=== PATIENT | female | born 1965 | race Caucasian/White ===

== ENCOUNTER → 2016-12-03 | Day surgery (SDC) | payer BC ==
[~2016-12-03] MED LIST: BUPIVACAINE 0.25%-EPINEPHRINE 1:200,000 30 ML ONE; CEFAZOLIN 1 GM VIAL ONE; DEXAMETHASONE 4 MG/ML VIAL IV ONE; FENTANYL 100 MCG/2 ML VIAL IV ONE; FENTANYL 100 MCG/2 ML VIAL IV PRN; FENTANYL 100 MCG/2 ML VIAL ONE; HYDROmorphone 1 MG INJECTION IV PRN; HYDROmorphone 1 MG INJECTION ONE; LABETALOL 20 MG/4 ML SYRINGE IV PRN; MEPERIDINE 25 MG/ML TUBEX IV PRN; MIDAZOLAM 2 MG/2 ML VIAL IV ONE; ONDANSETRON HCL 4 MG ODT TAB PO PRN; ONDANSETRON HCL 4 MG/2 ML VIAL IV ONE; ONDANSETRON HCL 4 MG/2 ML VIAL IV PRN; PROPOFOL 200 MG/20 ML VIAL IV ONE; SULFUR COLLOID 5 MCI V IV ONE; hydrALAZINE 20 MG/ML VIAL IV PRN
--- NOTE | 2016-12-03 08:36 | DIRPT ---
CLINICAL DATA: Right breast cancer. EXAM: NUCLEAR MEDICINE BREAST LYMPHOSCINTIGRAPHY TECHNIQUE: Intradermal injection of radiopharmaceutical was performed at the 12 o'clock, 3 o'clock, 6 o'clock, and 9 o'clock positions around the right nipple. The patient was then sent to the operating room where the sentinel node(s) were identified and removed by the surgeon. RADIOPHARMACEUTICALS: Total of 1 mCi Millipore-filtered Technetium-99m sulfur colloid, injected in four aliquots of 0.25 mCi each. IMPRESSION: Uncomplicated intradermal right breast injection of a total of 1 mCi Technetium-99m sulfur colloid for purposes of sentinel node identification. Electronically Signed By: Ciaran Horan M.D. On: 12/03/2016 08:34
--- NOTE | 2016-12-03 09:05 | HIM.ANES ---
Anesthesia Evaluation & Plan Diagnoses: NEOPLASM OF UNSPECIFIED BEHAVIOR OF BREAST (12/03/16) Consented Procedure: RIGHT NEEDLE LOCALIZED BREAST BIOPSY WITH SENTINEL LYMPH NODE BIOPSY - Focused Review of Systems Cardiac History: Yes: Hx Hypertension, Hx Cardiac Disorders HEENT: Yes: Hx Vision Problem (CONTACTS), Other HEENT Problems Hx Other HEENT Problems: SEASONAL ALLERGIES Respiratory: Yes: Patient at risk for Sleep apnea (Based on LORENA tool), Hx Snoring Gastrointestinal: Yes: Hx Gastrointestinal Disorders, Hx Colonoscopy (2014) Neurological/Musculoskeletal: Yes: Hx Migraine, Hx Neurological Disorders Psychological: Yes Hx Anxiety, Yes Hx Depression, Yes Hx Mental/Emotional Disorders Blood/Autoimmune: No: Hx AIDS, Hx Hepatitis (type) Smoking Status: Never smoker Other Surgical History: OOPHRECTOMY, C SECTION 07/31/1993 - Focused Physical Exam NPO since: 12/02/16 1830 Mallampati: Class II Thyromental Distance: Greater than 3 Neck: Full Range of Motion Dental: Normal - no significant findings Cardiovascular/Chest: Normal Respiratory: Lungs clear Any problems with anesthesia, including nausea and vomiting?: No Any relatives with a history of Malignant Hyperthermia?: No Beta Vicente given (if appropriate): N/A Does the patient have a history of Motion Sickness-: Yes Other: Allergies Allergy/AdvReac Type Severity Reaction Status Date / Time MIGUEL Inhibitors Allergy Unknown Verified 12/03/16 07:59 morphine Allergy Headache Verified 12/03/16 07:59 moxifloxacin [From Avelox] Allergy Unknown Verified 12/03/16 07:59 Sulfa (Sulfonamide Allergy Hives* Verified 12/03/16 07:59 Antibiotics) ADHESIVES Allergy Rash-Locali Uncoded 12/03/16 07:59 zed Home Medications Medication Instructions Recorded Last Taken Type Alprazolam [Xanax] 0.25 mg PO DAILY PRN 11/29/16 11/14/16 History Amitriptyline HCl 50 mg PO HS 11/29/16 12/02/16 19:30 History Losartan/Hydrochlorothiazide 1 each PO DAILY 11/29/16 12/02/16 08:00 History [Losartan-Hctz 100-12.5 mg Tab] Mv,Iron,Min/Folic Acid/Biotin 66.7 mcg PO DAILY 11/29/16 12/02/16 08:00 History [Hair, Skin & Nails Softgel] Paroxetine HCl [Paxil Cr] 50 mg PO HS 11/29/16 12/02/16 19:30 History Height and Weight Patient's height 5 ft Patient's weight 77.111 kg Vital Signs Temperature 98.1 F 12/03/16 07:35 Pulse Rate 73 12/03/16 07:35 Respiratory Rate 18 12/03/16 07:35 Blood Pressure 124/78 12/03/16 07:35 Pulse Oxygen Saturation 97 12/03/16 07:35 - Anesthetic Plan Anesthesia Type: General (LMA OK.) ASA Class: 3 -: I have examined this patient and reviewed the medical record. The patient has been assessed prior to anesthesia. Risks and benefits of anesthesia and anesthetic technique options have been discussed and all questions answered. The patient accepts the risk and desires me to proceed with the planned anesthetic.
--- NOTE | 2016-12-03 11:15 | DIRPT ---
CLINICAL DATA: Specimen radiograph status post right lumpectomy. EXAM: SPECIMEN RADIOGRAPH OF THE RIGHT BREAST COMPARISON: Previous exam(s). FINDINGS: Status post excision of the right breast. The wire tip and biopsy marker clip are present and are marked for pathology. These findings were communicated with the OR at 11:10 a.m. on 12/23/2016. IMPRESSION: Specimen radiograph of the right breast. Electronically Signed By: Elidia Gayle M.D. On: 12/03/2016 11:12
--- NOTE | 2016-12-03 11:34 | HIMOPRPT ---
DATE OF PROCEDURE: 12/03/16 PREOPERATIVE DIAGNOSES: T1c N0 M0 right upper outer quadrant breast cancer. POSTOPERATIVE DIAGNOSES: Same. PROCEDURES: Needle localized breast biopsy with sentinel lymph node biopsy. SURGEON: Emiliano Daniel MD ANESTHESIA: General. COMPLICATIONS: None. ESTIMATED BLOOD LOSS: Minimal. ANTIBIOTICS: Preoperative antibiotics given. INDICATIONS: The patient is a very pleasant 51-year-old female who had been found to have breast cancer. We have been asked to evaluate and treat her and felt she would benefit from breast conservation. We have gone over this in detail including the risk of infection, bleeding and anesthesia as well as unforeseen complications. She had understood and agreed was brought for the above-mentioned procedures. OPERATIVE NOTE: The patient had been brought to the operating room after undergoing needle localization and injection for the sentinel node. She was placed on the operating table in supine position. After adequate amount of general anesthesia she was prepped and draped sterile manner. When given the okay by anesthesia after appropriate time-out an incision below the hairline in the right axilla was made through skin and subcutaneous tissues with scalpel dissection. Bleeding was controlled with Bovie cautery. Dissection was carried down to the axillary fat pad and used the gamma camera a hot node was in countered and excised. After excising this there were no other nodes noted that had taken up the radiotracer. The pectoralis muscle was slightly hot but we had dissected underneath it and oriented the probe looking inferiorly to superiorly and it was still hot indicating it was not nodes underneath it. We felt that this was just part of the lymphatics it was not near the numbers we had from her lymph node. At that point we irrigated the wound and assured hemostasis. The subcutaneous tissues were brought together with 3 0 Vicryl suture and then 4 0 Monocryl were used to bring the skin together. The node was sent off for pathologic analysis. Another appropriate time-out was obtained and then we made an incision directly over where we felt the breast lesion was located. Skin flaps were created superiorly and inferiorly and the needle wire was brought out through the wound. We carefully dissected down to the chest wall and excised and area around the needle wire that would encompass the lesion with good margins. At that point we marked the specimen with a single short stitch superiorly, a double short stitch anteriorly and a double long stitch laterally. The wound was then irrigated and hemostasis was assured. The specimen had been sent for radiologic confirmation and this was the case. With hemostasis assured the wound was then closed with 3 0 Vicryl suture in the subcutaneous tissues and 4 0 Monocryl to bring the skin together. Dermabond tissue adhesive was applied and allowed to dry. Dry compression dressing was applied the patient was awoke and taken recover room in excellent condition with correct sponge counts needle counts.
[2016-12-03] MEDS: FENTANYL 100 MCG/2 ML VIAL IV PRN ×2 (11:45→11:55)
[2016-12-03] MEDS: HYDROmorphone 1 MG INJECTION IV PRN ×2 (12:05→12:15)
[2016-12-03 12:27] VITALS: TEMP 98.1
[2016-12-03 13:15] VITALS: PULSE 73
[2016-12-03 15:06] VITALS: BP 115/76
--- NOTE | 2016-12-03 15:06 | SC.ANESPOS ---
Post-Anesthesia Note LOC: Fully Awake Post-Anesthesia Assessment: Awake, Returned to Baseline, Hemodynamically Stable , Pain Control Adequate Phase I & II Recovery Complete: Yes Apparent Anesthesia Complication: No : N PACU Discharge Time: 12:35 - Vital Signs Blood Pressure: 115/76 Pulse: 73 Resp Rate: 18 O2 Sat: 96 Temp: 98.1 F - Comments Anesthesia Discharge Time Report Time 12:35
--- NOTE | 2016-12-05 12:13 | DIRPT ---
CLINICAL DATA: 51-year-old female presenting for wire localization of a right breast cancer. EXAM: NEEDLE LOCALIZATION OF THE RIGHT BREAST WITH MAMMO GUIDANCE COMPARISON: Previous exams. FINDINGS: Patient presents for needle localization prior to right breast lumpectomy. I met with the patient and we discussed the procedure of needle localization including benefits and alternatives. We discussed the high likelihood of a successful procedure. We discussed the risks of the procedure, including infection, bleeding, tissue injury, and further surgery. Informed, written consent was given. The usual time-out protocol was performed immediately prior to the procedure. Using mammographic guidance, sterile technique, 1% lidocaine and a 7 cm modified Kopans needle, a coil shaped biopsy marking clip within the mass in the right upper outer quadrant localized using lateral approach. The images were marked for Dr. Daniel. IMPRESSION: Needle localization right breast. No apparent complications. Electronically Signed By: Elidia Gayle M.D. On: 12/03/2016 08:46
== END ==
LOC: SDC 06:30 → EDSTATUS 09:45
PROVIDERS: ATTEND Surgery
PROC: 07B50ZX Excision of Right Axillary Lymphatic, Open Approach, Diagnostic (ICD-10-PCS; 2016-12-03)
PROC: 0HBT0ZX Excision of Right Breast, Open Approach, Diagnostic (ICD-10-PCS; principal; 2016-12-03 09:25)
DX: C50.411 Malignant neoplasm of upper-outer quadrant of right female breast (principal); I10 Essential (primary) hypertension; J45.909 Unspecified asthma, uncomplicated; G47.33 Obstructive sleep apnea (adult) (pediatric); G43.909 Migraine, unspecified, not intractable, without status migrainosus; F41.9 Anxiety disorder, unspecified; F32.9 Major depressive disorder, single episode, unspecified; Z79.899 Other long term (current) drug therapy
CPT/HCPCS: 19125; 19281; 38525; 38792; 76098; A9541; J0690; J1100; J1170; J2250; J2405; J3010; J3490